=== PATIENT | male | born 1975 | race Hispanic/Latino ===

== ENCOUNTER 2024-10-30 18:48 | Observation (INO) | payer SELFPAY ==
[~2024-10-30] VITALS: Ht 167.6 cm; Wt 84.8 kg
[2024-10-30 18:48] VITALS: PULSE 100; RESP 19; TEMP 97.9
[~2024-10-30 18:48] MED LIST: ATORVASTATIN CA20 MG PO; CARVEDILOL12.5 MG PO; CLOPIDOGREL75 MG PO; DICYCLOMINE HCL20 MG PO; ENTRESTO 24 MG1 EACH PO; GABAPENTIN300 MG PO; JARDIANCE10 MG PO; NAPROSYN500 MG PO; NOVOLOG100 UNIT/1 SC; ONDANSETRON ODT4 MG SL; PANTOPRAZOLE SO20 MG PO; PANTOPRAZOLE SO40 MG PO; PREDNISONE20 MG PO; VALTREX1000 MG PO
[2024-10-30 19:07] LABS: BASOPHILS % 0.4 % (0.0-1.0); EOSINOPHILS % 3.9 % (0.0-6.0); LYMPHOCYTES % 28.7 % (18.0-39.1); MONOCYTES % 7.7 % (4.4-11.3); NEUTROPHILS % 59.0 % (38.7-80.0); RED CELL DISTRIBUTION WIDTH 12.2 % (11.7-14.4)
[2024-10-30 19:22] LABS: EST GLOMERULAR FILTRATION RATE 102.0 ML/MIN (>=60)
[2024-10-30] MEDS ORDERED: SODIUM CHLORIDE 0.9% 1000ML 1,000 ML IV SCH (20:00)
[2024-10-30 21:56] VITALS: PULSE 96; RESP 16; O2SAT 98
[2024-10-30] MEDS: ASPIRIN 325 MG TAB PO ONE (21:59)
[2024-10-30] MEDS: ASPIRIN 81 MG CHEW TAB PO ONE (22:01)
[2024-10-30] MEDS: METOPROLOL SUCCINATE 25 MG TAB XL PO ONE (22:01)
[2024-10-30 22:30] VITALS: BP 128/88; PULSE 79; RESP 18; TEMP 97.8; O2SAT 100
[2024-10-30] MEDS ORDERED: ZOLPIDEM TARTRAT5 MG PO (22:45)
[2024-10-30] MEDS ORDERED: ROPINIROLE HC0.25 MG PO (22:45)
[2024-10-30] MEDS ORDERED: TRESIBA FL200 UNIT/1 SC (22:49)
[2024-10-30] MEDS ORDERED: HUMALOG KW200 UNIT/1 SC (22:52)
[2024-10-30 23:00] VITALS: BP 128/88; PULSE 79; RESP 18; TEMP 97.8; O2SAT 100
[2024-10-30 23:30] VITALS: BP 128/88; PULSE 79; RESP 18; TEMP 97.8; O2SAT 100
[2024-10-31] VITALS (9 sets, daily range): BP systolic 123–132; BP diastolic 84–91; PULSE 78–93; RESP 16–19; TEMP 97.7–98.1; O2SAT 96–100
[2024-10-31 04:03] LABS: BASOPHILS % 0.7 % (0.0-1.0); EOSINOPHILS % 5.6 % (0.0-6.0); LYMPHOCYTES % 33.0 % (18.0-39.1); MONOCYTES % 9.6 % (4.4-11.3); NEUTROPHILS % 50.9 % (38.7-80.0); RED CELL DISTRIBUTION WIDTH 12.1 % (11.7-14.4)
[2024-10-31 04:23] LABS: EST GLOMERULAR FILTRATION RATE 108.0 ML/MIN (>=60)
[2024-10-31] MEDS ORDERED: DEXTROSE 50% SYRINGE 50 ML IV PRN (10:30)
[2024-10-31] MEDS: INSULIN LISPRO 100 UNIT/1 ML 3ML VIAL SQ SCH (11:38)
[2024-10-31] MEDS: SACUBITRIL/VALSARTAN 24MG/26MG 1 EA TAB PO SCH (17:33)
[2024-10-31] MEDS: CARVEDILOL 3.125 MG TAB PO SCH (17:34)
[2024-10-31] MEDS: ATORVASTATIN 40 MG TAB PO SCH (20:20)
[2024-10-31] MEDS: GABAPENTIN 300 MG CAP PO SCH (20:20)
[2024-10-31] MEDS: ROPINIROLE HCL 0.25 MG TAB PO SCH (20:21)
[2024-10-31] MEDS: ZOLPIDEM TARTRATE 10 MG TAB PO SCH (20:21)
[2024-10-31] MEDS: ASPIRIN 81 MG CHEW TAB PO SCH (22:15)
[2024-11-01] VITALS: BP 119/85; PULSE 76; RESP 17; TEMP 98.3; O2SAT 98
[2024-11-01 04:00] VITALS: BP 105/70; PULSE 81; RESP 17; TEMP 98.1; O2SAT 100
[2024-11-01 07:38] LABS: CHOL/HDL RATIO 2.7 (3.9-4.7); LDL CHOLESTEROL 52.0 MG/DL (60-130)
[2024-11-01 07:43] VITALS: BP 123/89; PULSE 81; RESP 18; TEMP 98; O2SAT 100
[2024-11-01 08:00] VITALS: BP 123/89; PULSE 81; RESP 18; TEMP 98; O2SAT 100
[2024-11-01] MEDS: CLOPIDOGREL BISULFATE 75 MG TAB PO SCH (08:58)
[2024-11-01] MEDS: EMPAGLIFLOZIN 10 MG TABLET PO SCH (08:58)
[2024-11-01 11:41] VITALS: BP 116/79; PULSE 88; RESP 18; TEMP 97.4; O2SAT 100
[2024-11-01] MEDS ORDERED: ASPIRIN CHEW81 MG PO (11:47)
[2024-11-01] MEDS ORDERED: COREG3.125 MG PO (11:47)
== END 2024-11-01 13:24 | disposition home or self-care (01) ==
LOC: ER 19:05 → ERHOLD 20:02 → MED/SURG3 21:52
PROVIDERS: ADMIT Internal Medicine; ATTEND Internal Medicine
DX: I25.118 Atherosclerotic heart disease of native coronary artery with other forms of angina pectoris (principal); I11.0 Hypertensive heart disease with heart failure; I50.22 Chronic systolic (congestive) heart failure; E11.9 Type 2 diabetes mellitus without complications; Z79.4 Long term (current) use of insulin; E78.5 Hyperlipidemia, unspecified; G25.81 Restless legs syndrome; Z95.5 Presence of coronary angioplasty implant and graft; I25.2 Old myocardial infarction; Z87.891 Personal history of nicotine dependence
CPT/HCPCS: 36415 ×2; 71045; 80048; 80053; 80061; 82550 ×3; 82948 ×2; 83036; 83880; 84484 ×3; 85025 ×2; 85379; 93005; 93306; 94760; 94799 ×2; 99283; G0378 ×3

== ENCOUNTER 2024-11-26 07:07 | Inpatient (IN) | payer OTHER ==
[2024-11-26] VITALS (7 sets, daily range): BP systolic 126–138; BP diastolic 83–87; PULSE 67–77; RESP 16–20; TEMP 97.6–98.6; O2SAT 100
[~2024-11-26] VITALS: Ht 167.6 cm; Wt 84.8 kg
[~2024-11-26 07:07] MED LIST changes: +ASPIRIN CHEW81 MG PO; +COREG3.125 MG PO; +HUMALOG KW200 UNIT/1 SC; +ROPINIROLE HC0.25 MG PO; +TRESIBA FL200 UNIT/1 SC; +ZOLPIDEM TARTRAT5 MG PO
[2024-11-26 07:52] LABS: BASOPHILS % 0.3 % (0.0-1.0); EOSINOPHILS % 4.3 % (0.0-6.0); LYMPHOCYTES % 25.9 % (18.0-39.1); MONOCYTES % 8.5 % (4.4-11.3); NEUTROPHILS % 60.9 % (38.7-80.0); RED CELL DISTRIBUTION WIDTH 11.5 % (11.7-14.4)
[2024-11-26 08:06] LABS: INR 0.81
[2024-11-26] MEDS: SODIUM CHLORIDE 0.9% 1000ML 1,000 ML IV STA (08:10)
[2024-11-26] MEDS: METOPROLOL TARTRATE 25 MG TAB PO ONE (08:10)
[2024-11-26 08:17] LABS: EST GLOMERULAR FILTRATION RATE 109 ML/MIN (>=60)
[2024-11-26] MEDS: METOPROLOL TARTRATE 25 MG TAB PO SCH (08:45)
[2024-11-26] MEDS ORDERED: ONDANSETRON HCL INJ 2MG/ML 2ML 2 MG/ML VIAL IV PRN (08:45)
[2024-11-26] MEDS ORDERED: Morphine 2mg Syringe 2 MG/ML SYR IV PRN (08:45)
[2024-11-26] MEDS ORDERED: NITROGLYCERIN 0.4 MG SUBL SL PRN (08:45)
[2024-11-26] MEDS: CLOPIDOGREL BISULFATE 75 MG TAB PO SCH (09:00)
[2024-11-26] MEDS: ASPIRIN 81 MG ENTERIC COATED PO SCH (09:00)
[2024-11-26] MEDS ORDERED: JARDIANCE25 MG PO (12:37)
[2024-11-26] MEDS ORDERED: INSULIN LI100 UNIT/1 SC (12:37)
[2024-11-26] MEDS ORDERED: NEURONTIN300 MG PO (12:37)
[2024-11-26] MEDS ORDERED: BASAGLAR K100 UNIT/1 SC (12:37)
[2024-11-26] MEDS ORDERED: NON-FORMULARY MEDICATION (Sacubitril/Valsartan (Entresto 24 mg-26 mg Tablet) 1 TAB) PO SCH (17:00)
[2024-11-26] MEDS: GABAPENTIN 300 MG CAP PO SCH (17:02)
[2024-11-26] MEDS: CARVEDILOL 3.125 MG TAB PO SCH (17:02)
[2024-11-26] MEDS: INSULIN GLARGINE 100 UNITS/ML VIAL SQ ONE (17:06)
[2024-11-26] MEDS: INSULIN LISPRO 100 UNIT/1 ML 3ML VIAL SQ SCH (17:07)
[2024-11-26] MEDS ORDERED: ACETAMINOPHEN 325 MG TAB PO PRN (20:15)
[2024-11-26] MEDS: ACETAMIN/BUTALBITAL/CAFFEINE TAB PO PRN (20:54)
[2024-11-26] MEDS: ATORVASTATIN 20 MG TAB PO SCH (20:55)
[2024-11-26] MEDS: ROPINIROLE HCL 0.25 MG TAB PO SCH (20:55)
[2024-11-26] MEDS: ZOLPIDEM TARTRATE 5 MG TAB PO SCH (20:55)
[2024-11-27] VITALS: BP 136/90; PULSE 81; RESP 20; TEMP 98.8; O2SAT 97
[2024-11-27 04:00] VITALS: BP 138/91; PULSE 77; RESP 20; TEMP 98; O2SAT 100
[2024-11-27 06:16] LABS: BASOPHILS % 0.5 % (0.0-1.0); EOSINOPHILS % 4.6 % (0.0-6.0); LYMPHOCYTES % 29.2 % (18.0-39.1); MONOCYTES % 8.2 % (4.4-11.3); NEUTROPHILS % 57.2 % (38.7-80.0); RED CELL DISTRIBUTION WIDTH 11.6 % (11.7-14.4)
[2024-11-27 06:34] LABS: CHOL/HDL RATIO 2.5 (3.9-4.7); EST GLOMERULAR FILTRATION RATE 112.0 ML/MIN (>=60); LDL CHOLESTEROL 42.0 MG/DL (60-130)
[2024-11-27 06:56] LABS: T3 UPTAKE 34.23 % (22.5-37.0)
[2024-11-27 08:11] VITALS: BP 146/97; PULSE 77; RESP 19; TEMP 98.4; O2SAT 97
[2024-11-27 08:30] VITALS: BP 146/97; PULSE 77; RESP 19; TEMP 98.4; O2SAT 97
[2024-11-27] MEDS: SACUBITRIL/VALSARTAN 24MG/26MG 1 EA TAB PO SCH (08:42)
[2024-11-27] MEDS: NON-FORMULARY MEDICATION (Empagliflozin (Jardiance) 1 TAB) PO SCH (08:49)
[2024-11-27] MEDS: INSULIN GLARGINE HUM REC ANLOG 10 UNIT SQ SCH (09:00)
[2024-11-27] MEDS: [UNRECOGNIZED DRUG - OTHER] SQ SCH (09:00)
[2024-11-27] MEDS: INSULIN GLARGINE 100 UNITS/ML VIAL SQ SCH (13:30)
[2024-11-27 17:01] VITALS: BP 143/87; PULSE 80; RESP 19; TEMP 99; O2SAT 96
[2024-11-27 20:00] VITALS: BP 130/92; PULSE 87; RESP 18; TEMP 98.2; O2SAT 100; O2SAT 96
[2024-11-28] VITALS (7 sets, daily range): BP systolic 120–136; BP diastolic 69–93; PULSE 71–93; RESP 17–20; TEMP 97.9–98.8; O2SAT 96–100
[2024-11-28] MEDS: SODIUM CHLORIDE 0.9% 1000ML 1,000 ML IV SCH (13:53)
[2024-11-29] VITALS (10 sets, daily range): BP systolic 124–138; BP diastolic 86–97; PULSE 80–88; RESP 14–19; TEMP 97.6–98.4; O2SAT 95–100
[2024-11-29 05:43] LABS: BASOPHILS % 0.4 % (0.0-1.0); EOSINOPHILS % 4.3 % (0.0-6.0); LYMPHOCYTES % 29.6 % (18.0-39.1); MONOCYTES % 8.2 % (4.4-11.3); NEUTROPHILS % 57.4 % (38.7-80.0); RED CELL DISTRIBUTION WIDTH 11.8 % (11.7-14.4)
[2024-11-29 06:19] LABS: EST GLOMERULAR FILTRATION RATE 108.0 ML/MIN (>=60)
[2024-11-29] MEDS: BIVALRIUDIN 250 MG/VIAL VIAL IV ONE (10:35)
[2024-11-29] MEDS: HEPARIN SOD/SOD CHLORIDE 2,000 ML ONE (10:35)
[2024-11-29] MEDS: FENTANYL CITRATE/PF 100MCG/2 ML INJ ONE (10:36)
[2024-11-29] MEDS: SODIUM CHLORIDE 0.9% 1000ML 1,000 ML ONE (10:36)
[2024-11-29] MEDS: IOPAMIDOL 370 MG/ML 100 ML INFUS..BTL INJ ONE (10:36)
[2024-11-29] MEDS: LIDOCAINE HCL 2% LOCAL 20 ML VIAL ONE (10:36)
[2024-11-29] MEDS: MIDAZOLAM HCL 2 MG/2 ML VIAL ONE (10:36)
[2024-11-29] MEDS ORDERED: JARDIANCE25 MG PO (15:54)
[2024-11-29] MEDS ORDERED: ATORVASTATIN CA20 MG PO (15:54)
[2024-11-29] MEDS ORDERED: ENTRESTO 24 MG1 EACH PO (15:54)
[2024-11-29] MEDS ORDERED: CLOPIDOGREL75 MG PO (15:54)
[2024-11-29] MEDS ORDERED: BASAGLAR K100 UNIT/1 SC (15:54)
== END 2024-11-29 20:00 | disposition home or self-care (01) | DRG 287 ==
LOC: ER 07:08 → ERHOLD 08:43 → MED/SURG2 11:11 → OBSVTOIN 11-27 15:25
PROVIDERS: ADMIT Internal Medicine; ATTEND Internal Medicine
PROC: 4A023N7 Measurement of Cardiac Sampling and Pressure, Left Heart, Percutaneous Approach (ICD-10-PCS; principal; 2024-11-29)
PROC: B2111ZZ Fluoroscopy of Multiple Coronary Arteries using Low Osmolar Contrast (ICD-10-PCS; 2024-11-29)
PROC: B2151ZZ Fluoroscopy of Left Heart using Low Osmolar Contrast (ICD-10-PCS; 2024-11-29)
PROC: B41F1ZZ Fluoroscopy of Right Lower Extremity Arteries using Low Osmolar Contrast (ICD-10-PCS; 2024-11-29)
DX: I25.111 Atherosclerotic heart disease of native coronary artery with angina pectoris with documented spasm (principal); I25.110 Atherosclerotic heart disease of native coronary artery with unstable angina pectoris; I50.22 Chronic systolic (congestive) heart failure; I11.0 Hypertensive heart disease with heart failure; E78.00 Pure hypercholesterolemia, unspecified; E11.9 Type 2 diabetes mellitus without complications; G25.81 Restless legs syndrome; Z79.02 Long term (current) use of antithrombotics/antiplatelets; Z79.82 Long term (current) use of aspirin; Z79.4 Long term (current) use of insulin; I25.2 Old myocardial infarction; Z95.5 Presence of coronary angioplasty implant and graft; Z87.891 Personal history of nicotine dependence; Z82.49 Family history of ischemic heart disease and other diseases of the circulatory system; Z91.141 Patient's other noncompliance with medication regimen due to financial hardship
CPT/HCPCS: 36415; 71045; 76937; 80053; 80061; 82550; 82948; 83036; 83690; 83735; 83880; 84436; 84443; 84479; 84484; 85025; 85610; 85730; 93005; 93306; 93458; 99152; 99153; 99284; C1760; C1766; C1769; C1887; G0378; J0583; J1815; J2003; J2250; J7030; Q9967